=== PATIENT | male | born 1945 | race African-American/Black ===

== ENCOUNTER 2020-06-17 12:13 | Inpatient (IN) | payer MEDICARE, MEDICAID ==
[~2020-06-17] VITALS: Ht 177.8 cm; Wt 68.0 kg
[2020-06-17] MEDS ORDERED: ACETAMINOPHEN 325MG TABLET PO ONE (14:00)
[2020-06-17] MEDS ORDERED: IPRATROPIUM BROMIDE (0.02%) 0.5MG/2.5ML NEB HHN STA (14:01)
[2020-06-17] MEDS ORDERED: METHYLPREDNISOLONE SOD SUCC 125 MG/2 ML VIAL IV STA (14:01)
[2020-06-17] MEDS ORDERED: ALBUTEROL (0.083%) 2.5MG/3ML NEB HHN STA (14:01)
[2020-06-17] MEDS ORDERED: LEVOFLOXACIN 750MG PREMIX 150 ML IV ONE (14:15)
[2020-06-17 14:23] LABS: BASOPHILS % 0.2 % (0.0-2.0); HEMATOCRIT. 34.2 % (42.0-52.0); HEMOGLOBIN. 11.2 g/dL (14.0-18.0); LYMPHOCYTES % 8.9 % (20.0-50.0); MEAN CORPUSCULAR HEMOGLOBIN 29.5 pg (28.0-32.0); MEAN CORPUSCULAR VOLUME 89.8 fL (80.0-94.0); MONOCYTES % 7.3 % (2.0-8.0); NEUTROPHILS % 83.6 % (40.0-76.0); RED BLOOD CELL COUNT 3.81 mill/uL (4.7-6.1); RED CELL DISTRIBUTION WIDTH 13.9 % (11.6-14.6)
[2020-06-17 14:30] LABS: CHLORIDE 103 mEq/L (98-107)
[2020-06-17 14:47] LABS: MEAN PLATELET VOLUME 9.2 fl (7.4-10.4); PLATELET ESTIMATE NORMAL
[2020-06-17 14:48] LABS: PLATELET 227 x1000/uL (130-400)
[2020-06-17] MEDS ORDERED: DEXTROSE 50% WATER 50ML SYRINGE IV PRN (15:15)
[2020-06-17] MEDS ORDERED: NITROGLYCERIN 0.4MG TABLET SL SL PRN (15:15)
[2020-06-17] MEDS ORDERED: GUAIFENESIN 200MG/10ML SUGAR FREE UDC PO PRN (15:15)
[2020-06-17] MEDS ORDERED: MAGNESIUM/ALUMINUM HYDROXIDE/SIMETHICONE 30ML UDC PO PRN (15:15)
[2020-06-17] MEDS ORDERED: ALBUTEROL 6.7GM HFA INHALER ORI PRN (15:15)
[2020-06-17] MEDS ORDERED: ONDANSETRON HCL 4MG/2ML INJ IV PRN (15:15)
[2020-06-17] MEDS ORDERED: ACETAMINOPHEN 325MG TABLET PO PRN (15:15)
[2020-06-17] MEDS ORDERED: TRAMADOL 50MG TABLET PO PRN (15:26)
[2020-06-17] MEDS ORDERED: KETOROLAC 15MG/ML VIAL IV PRN (15:27)
[2020-06-17 17:52] LABS: FOLIC ACID (FOLATE) SERUM 12.3 ng/mL (>5.38)
[2020-06-17] MEDS: DILTIAZEM HCL 60MG TABLET PO SCH (18:00)
[2020-06-17] MEDS: ENOXAPARIN 30MG/0.3ML SYR SUBCUT SCH (18:00)
[2020-06-17] MEDS ORDERED: SODIUM CHLORIDE 0.9% 1000ML BAG (SEPSIS BOLUS) IV ONE (19:30)
[2020-06-17] MEDS: AZITHROMYCIN 500 MG in DEXT 5% WATER 250 ML IV SCH (20:00)
[2020-06-17] MEDS ORDERED: ZOLPIDEM TARTRATE 5MG TABLET PO PRN (20:00)
[2020-06-17] MEDS: BLOOD SUGAR DIAGNOSTIC STRIP TEST SCH (20:28)
[2020-06-17] MEDS: INSULIN LISPRO 100 UNITS/ML SUBCUT SCH (21:00)
[2020-06-17] MEDS: GUAIFENESIN/DM 600MG/30MG ER TAB 12HR PO SCH (21:26)
[2020-06-17] MEDS: FAMOTIDINE 20MG TABLET PO SCH (21:26)
[2020-06-17] MEDS: ASCORBIC ACID 500 MG TABLET PO SCH (21:26)
[2020-06-17] MEDS ORDERED: INSULIN GLARGINE UD 100 UNITS/ML SYR SUBCUT SCH (22:00)
[2020-06-17] MEDS ORDERED: IOHEXOL-350 100 ML BOTTLE ONE (23:30)
[2020-06-17 23:57] LABS: CREATINE KINASE MB FRACTION 7.3 ng/mL (0.5-3.6)
[2020-06-18 02:01] LABS: CLARITY URINE CLEAR (CLEAR); COLOR URINE YELLOW (YELLOW); KETONES URINE TRACE (NEGATIVE); LEUKOCYTE ESTERASE URINE NEGATIVE (NEGATIVE); NITRITE URINE NEGATIVE (NEGATIVE); OCCULT BLOOD URINE 1+ (NEGATIVE); PROTEIN URINE 3+ (NEGATIVE); SPECIFIC GRAVITY URINE 1.054 (1.005-1.030)
[2020-06-18 02:13] LABS: *AMPHETAMINES SCREEN URINE NEGATIVE (NEGATIVE); *BARBITURATES SCREEN URINE NEGATIVE (NEGATIVE); *BENZODIAZEPINES SCREEN URINE NEGATIVE (NEGATIVE)
[2020-06-18 02:14] LABS: *COCAINE SCREEN URINE NEGATIVE (NEGATIVE); CANNABINOID URINE SCREEN NEGATIVE (NEGATIVE); METHADONE URINE SCREEN NEGATIVE (NEGATIVE); OPIATES URINE SCREEN NEGATIVE (NEGATIVE); PHENCYCLIDINE URINE SCREEN NEGATIVE (NEGATIVE)
[2020-06-18 06:05] LABS: HEMATOCRIT. 29.3 % (42.0-52.0); MEAN CORPUSCULAR HEMOGLOBIN 30.3 pg (28.0-32.0); MEAN PLATELET VOLUME 9.1 fl (7.4-10.4); PLATELET 218 x1000/uL (130-400); RED BLOOD CELL COUNT 3.29 mill/uL (4.7-6.1); RED CELL DISTRIBUTION WIDTH 13.9 % (11.6-14.6)
[2020-06-18 06:11] LABS: CHLORIDE 103 mEq/L (98-107)
[2020-06-18 06:18] LABS: PHOSPHORUS 2.4 mg/dL (2.5-4.9)
[2020-06-18 06:21] LABS: CREATINE KINASE 627 IU/L (39-308)
[2020-06-18 06:24] LABS: CREATINE KINASE MB FRACTION 11.3 ng/mL (0.5-3.6)
[2020-06-18 07:31] LABS: ATYPICAL LYMPHOCYTES 1; PLATELET ESTIMATE NORMAL
[2020-06-18] MEDS: ENOXAPARIN 30MG/0.3ML SYR SUBCUT SCH ×2 (08:09→18:28)
[2020-06-18] MEDS: DILTIAZEM HCL 60MG TABLET PO SCH ×4 (08:27→18:28)
[2020-06-18] MEDS: BLOOD SUGAR DIAGNOSTIC STRIP TEST SCH ×4 (09:02→22:01)
[2020-06-18] MEDS: GUAIFENESIN/DM 600MG/30MG ER TAB 12HR PO SCH ×2 (09:42→21:00)
[2020-06-18] MEDS: INSULIN LISPRO 100 UNITS/ML SUBCUT SCH ×4 (09:42→21:00)
[2020-06-18] MEDS: ASCORBIC ACID 500 MG TABLET PO SCH ×2 (09:43→21:00)
[2020-06-18] MEDS: DEXAMETHASONE 10 MG/ML VIAL IV SCH (11:01)
[2020-06-18] MEDS: ZINC SULFATE 220 MG ( 50 ) CAPSULE PO SCH (11:02)
[2020-06-18] MEDS: FAMOTIDINE 20MG TABLET PO SCH ×2 (11:02→21:00)
[2020-06-18] MEDS: ASPIRIN 325MG EC TABLET PO SCH (11:02)
[2020-06-18] MEDS: INSULIN GLARGINE UD 100 UNITS/ML SYR SUBCUT SCH (22:00)
[2020-06-18 23:01] LABS: BG BASE EXCESS -2.9 mmol/L (-2.0-2.0); BG CARBOXYHEMOGLOBIN 0.3 % (0.5-1.5); BG DEOXYHEMOGLOBIN 7.5 % (0.0-5.0); BG FRACTION INSPIRED OXYGEN 100; BG HCO3 ACT 19.3 mmol/L (22.0-26.0); BG METHEMOGLOBIN 0.2 % (0.0-1.5); BG OXYGEN SATURATION 92.5 % (92.0-98.5); BG PCO2 26.5 mmHg (35.0-45.0); BG PH 7.481 (7.350-7.450); BG PO2 65.4 mmHg (75.0-100.0); BG SAMPLE SITE RIGHT RADIAL; BG VENT MODE MASK - NRB
[2020-06-18] MEDS: CEFTRIAXONE 1 G PREMIX 50 ML IV SCH (23:30)
[2020-06-19] MEDS: AZITHROMYCIN 500 MG in DEXT 5% WATER 250 ML IV SCH ×2 (00:32→20:00)
[2020-06-19] MEDS: INSULIN GLARGINE UD 100 UNITS/ML SYR SUBCUT SCH (01:09)
[2020-06-19] MEDS: DILTIAZEM HCL 60MG TABLET PO SCH ×4 (06:00→18:16)
[2020-06-19] MEDS: ENOXAPARIN 30MG/0.3ML SYR SUBCUT SCH (06:58)
[2020-06-19] MEDS: BLOOD SUGAR DIAGNOSTIC STRIP TEST SCH ×4 (08:14→21:00)
[2020-06-19] MEDS: INSULIN LISPRO 100 UNITS/ML SUBCUT SCH ×4 (08:20→18:17)
[2020-06-19] MEDS: FAMOTIDINE 20MG TABLET PO SCH (09:23)
[2020-06-19] MEDS: GUAIFENESIN/DM 600MG/30MG ER TAB 12HR PO SCH (09:23)
[2020-06-19] MEDS: DEXAMETHASONE 10 MG/ML VIAL IV SCH (09:23)
[2020-06-19] MEDS: ZINC SULFATE 220 MG ( 50 ) CAPSULE PO SCH (09:23)
[2020-06-19] MEDS: ASPIRIN 325MG EC TABLET PO SCH (09:23)
[2020-06-19] MEDS: ASCORBIC ACID 500 MG TABLET PO SCH (09:23)
[2020-06-19 11:58] VITALS: BP 153/66
[2020-06-19] MEDS ORDERED: METF-415 MT (12:39)
[2020-06-19] MEDS ORDERED: ASPI-1497 MT (12:39)
[2020-06-19] MEDS ORDERED: VITA50005 PO (12:39)
[2020-06-19] MEDS ORDERED: AMLO10TA80 MT (12:39)
[2020-06-19] MEDS ORDERED: BICA50TA48 MT (12:39)
[2020-06-19] MEDS ORDERED: ASCO-339 PO (12:39)
[2020-06-19] MEDS ORDERED: DIPH50CA38 PO (12:39)
[2020-06-19] MEDS ORDERED: CLOP-31 MT (12:39)
[2020-06-19] MEDS ORDERED: ROSU20TA2 MT (12:39)
[2020-06-19 16:00] VITALS: BP 124/66
[2020-06-19 16:26] LABS: BG BASE EXCESS -3.4 mmol/L (-2.0-2.0); BG CARBOXYHEMOGLOBIN 0.1 % (0.5-1.5); BG DEOXYHEMOGLOBIN 13.1 % (0.0-5.0); BG FRACTION INSPIRED OXYGEN 36; BG HCO3 ACT 19.4 mmol/L (22.0-26.0); BG METHEMOGLOBIN 0.1 % (0.0-1.5); BG OXYGEN SATURATION 86.9 % (92.0-98.5); BG OXYHEMOGLOBIN 86.7 % (94.0-97.0); BG PCO2 27.7 mmHg (35.0-45.0); BG PH 7.463 (7.350-7.450); BG PO2 53.2 mmHg (75.0-100.0); BG SAMPLE SITE RIGHT BRACHIAL; BG TOTAL HEMOGLOBIN 10.7 g/dL (12.0-18.0); BG VENT MODE NASAL CANNULA
[2020-06-19] MEDS: CEFTRIAXONE 1 G PREMIX 50 ML IV SCH (21:00)
[2020-06-20] MEDS: INSULIN GLARGINE UD 100 UNITS/ML SYR SUBCUT SCH ×2 (00:41→22:53)
[2020-06-20] MEDS: ASCORBIC ACID 500 MG TABLET PO SCH ×3 (00:45→22:51)
[2020-06-20] MEDS: FAMOTIDINE 20MG TABLET PO SCH ×3 (00:45→22:51)
[2020-06-20] MEDS: GUAIFENESIN/DM 600MG/30MG ER TAB 12HR PO SCH ×3 (00:45→22:51)
[2020-06-20] MEDS: DILTIAZEM HCL 60MG TABLET PO SCH ×3 (06:00→17:01)
[2020-06-20] MEDS: BLOOD SUGAR DIAGNOSTIC STRIP TEST SCH ×4 (06:40→20:55)
[2020-06-20 08:00] VITALS: BP 151/55
[2020-06-20] MEDS: DEXAMETHASONE 10 MG/ML VIAL IV SCH (09:57)
[2020-06-20] MEDS: ENOXAPARIN 40MG/0.4ML SYR SUBCUT SCH (09:57)
[2020-06-20] MEDS: INSULIN LISPRO 100 UNITS/ML SUBCUT SCH ×4 (09:57→21:00)
[2020-06-20] MEDS: ASPIRIN 325MG EC TABLET PO SCH (09:58)
[2020-06-20] MEDS: ZINC SULFATE 220 MG ( 50 ) CAPSULE PO SCH (09:58)
[2020-06-20] MEDS: ALBUTEROL 6.7GM HFA INHALER ORI SCH ×2 (09:59→22:50)
[2020-06-20 12:00] VITALS: BP 143/69
[2020-06-20 16:00] VITALS: BP 122/39
[2020-06-20 20:00] VITALS: BP 128/52
[2020-06-20] MEDS: AZITHROMYCIN 500MG in DEXTROSE 5% WATER 250ML IV SCH (22:50)
[2020-06-20] MEDS: CEFTRIAXONE 1,000 MG in DEXTROSE 5% WATER 50 ML IV SCH (22:51)
[2020-06-21] VITALS: BP 132/54
[2020-06-21 04:00] VITALS: BP 144/68
[2020-06-21] MEDS: BLOOD SUGAR DIAGNOSTIC STRIP TEST SCH ×4 (06:40→21:00)
[2020-06-21 08:00] VITALS: BP 127/53
[2020-06-21] MEDS: ASCORBIC ACID 500 MG TABLET PO SCH ×2 (09:00→22:14)
[2020-06-21] MEDS: GUAIFENESIN/DM 600MG/30MG ER TAB 12HR PO SCH ×2 (10:08→22:14)
[2020-06-21] MEDS: DEXAMETHASONE 10 MG/ML VIAL IV SCH (10:08)
[2020-06-21] MEDS: INSULIN LISPRO 100 UNITS/ML SUBCUT SCH ×4 (10:09→22:14)
[2020-06-21] MEDS: ZINC SULFATE 220 MG ( 50 ) CAPSULE PO SCH (10:14)
[2020-06-21] MEDS: ASPIRIN 325MG EC TABLET PO SCH (10:14)
[2020-06-21] MEDS: ENOXAPARIN 40MG/0.4ML SYR SUBCUT SCH (10:15)
[2020-06-21] MEDS: FAMOTIDINE 20MG TABLET PO SCH ×2 (10:15→22:14)
[2020-06-21] MEDS: ALBUTEROL 6.7GM HFA INHALER ORI SCH ×2 (10:16→16:25)
[2020-06-21] MEDS: DILTIAZEM HCL 60MG TABLET PO SCH ×2 (12:17→17:46)
[2020-06-21 16:00] VITALS: BP 144/58
[2020-06-21] MEDS: INSULIN GLARGINE UD 100 UNITS/ML SYR SUBCUT SCH (22:13)
[2020-06-21] MEDS: AZITHROMYCIN 500MG in DEXTROSE 5% WATER 250ML IV SCH (22:13)
[2020-06-21] MEDS: CEFTRIAXONE 1,000 MG in DEXTROSE 5% WATER 50 ML IV SCH (22:13)
[2020-06-21 23:17] VITALS: BP 98/65
[2020-06-22] MEDS: ALBUTEROL 6.7GM HFA INHALER ORI SCH ×5 (01:02→22:16)
[2020-06-22] MEDS: DILTIAZEM HCL 60MG TABLET PO SCH ×4 (01:02→17:01)
[2020-06-22] MEDS: BLOOD SUGAR DIAGNOSTIC STRIP TEST SCH ×4 (06:40→21:00)
[2020-06-22 08:00] VITALS: BP 176/65
[2020-06-22] MEDS: ENOXAPARIN 40MG/0.4ML SYR SUBCUT SCH (09:54)
[2020-06-22] MEDS: GUAIFENESIN/DM 600MG/30MG ER TAB 12HR PO SCH ×2 (09:54→22:14)
[2020-06-22] MEDS: DEXAMETHASONE 10 MG/ML VIAL IV SCH (09:54)
[2020-06-22] MEDS: ASPIRIN 325MG EC TABLET PO SCH (09:55)
[2020-06-22] MEDS: FAMOTIDINE 20MG TABLET PO SCH ×2 (09:55→22:14)
[2020-06-22] MEDS: ASCORBIC ACID 500 MG TABLET PO SCH ×2 (09:55→22:14)
[2020-06-22] MEDS: CLONIDINE 0.1MG TABLET PO PRN (09:55)
[2020-06-22] MEDS: ZINC SULFATE 220 MG ( 50 ) CAPSULE PO SCH (09:55)
[2020-06-22] MEDS: INSULIN LISPRO 100 UNITS/ML SUBCUT SCH ×4 (09:56→21:00)
[2020-06-22 16:00] VITALS: BP 133/59
[2020-06-22 20:00] VITALS: BP 153/65
[2020-06-22] MEDS: AZITHROMYCIN 500MG in DEXTROSE 5% WATER 250ML IV SCH (22:03)
[2020-06-22] MEDS: CEFTRIAXONE 1,000 MG in DEXTROSE 5% WATER 50 ML IV SCH (22:03)
[2020-06-22] MEDS: INSULIN GLARGINE UD 100 UNITS/ML SYR SUBCUT SCH (22:15)
[2020-06-23] VITALS: BP 142/71
[2020-06-23] MEDS: DILTIAZEM HCL 60MG TABLET PO SCH ×4 (00:37→17:14)
[2020-06-23] MEDS: ALBUTEROL 6.7GM HFA INHALER ORI SCH ×4 (02:35→20:39)
[2020-06-23 04:00] VITALS: BP 117/45
[2020-06-23] MEDS: BLOOD SUGAR DIAGNOSTIC STRIP TEST SCH ×4 (06:41→20:37)
[2020-06-23] MEDS: INSULIN LISPRO 100 UNITS/ML SUBCUT SCH ×4 (07:10→20:37)
[2020-06-23 08:00] VITALS: BP 138/58
[2020-06-23] MEDS: ENOXAPARIN 40MG/0.4ML SYR SUBCUT SCH (08:39)
[2020-06-23] MEDS: DEXAMETHASONE 10 MG/ML VIAL IV SCH (08:40)
[2020-06-23] MEDS: ZINC SULFATE 220 MG ( 50 ) CAPSULE PO SCH (08:40)
[2020-06-23] MEDS: FAMOTIDINE 20MG TABLET PO SCH ×2 (08:40→20:36)
[2020-06-23] MEDS: GUAIFENESIN/DM 600MG/30MG ER TAB 12HR PO SCH ×2 (08:40→20:36)
[2020-06-23] MEDS: ASCORBIC ACID 500 MG TABLET PO SCH ×2 (08:40→20:37)
[2020-06-23] MEDS: ASPIRIN 325MG EC TABLET PO SCH (08:40)
[2020-06-23 12:00] VITALS: BP 157/67
[2020-06-23 16:00] VITALS: BP 144/78
[2020-06-23 20:00] VITALS: BP 108/68
[2020-06-23] MEDS: CEFTRIAXONE 1,000 MG in DEXTROSE 5% WATER 50 ML IV SCH (20:36)
[2020-06-23] MEDS: INSULIN GLARGINE UD 100 UNITS/ML SYR SUBCUT SCH (21:55)
[2020-06-24] VITALS: BP 130/58
[2020-06-24] MEDS: ALBUTEROL 6.7GM HFA INHALER ORI SCH ×4 (03:31→21:43)
[2020-06-24 04:00] VITALS: BP 106/68
[2020-06-24] MEDS: DILTIAZEM HCL 60MG TABLET PO SCH ×5 (06:00→23:35)
[2020-06-24] MEDS: BLOOD SUGAR DIAGNOSTIC STRIP TEST SCH ×4 (06:40→20:48)
[2020-06-24 08:00] VITALS: BP 110/59
[2020-06-24] MEDS: INSULIN LISPRO 100 UNITS/ML SUBCUT SCH ×4 (08:01→21:36)
[2020-06-24] MEDS: ZINC SULFATE 220 MG ( 50 ) CAPSULE PO SCH (08:31)
[2020-06-24] MEDS: DEXAMETHASONE 10 MG/ML VIAL IV SCH (08:31)
[2020-06-24] MEDS: ASCORBIC ACID 500 MG TABLET PO SCH ×2 (08:31→21:36)
[2020-06-24] MEDS: ASPIRIN 325MG EC TABLET PO SCH (08:31)
[2020-06-24] MEDS: GUAIFENESIN/DM 600MG/30MG ER TAB 12HR PO SCH ×2 (08:33→21:36)
[2020-06-24] MEDS: FAMOTIDINE 20MG TABLET PO SCH ×2 (09:00→21:35)
[2020-06-24] MEDS: ENOXAPARIN 40MG/0.4ML SYR SUBCUT SCH (09:23)
[2020-06-24 12:00] VITALS: BP 145/55
[2020-06-24 15:58] VITALS: BP 141/56
[2020-06-24 20:00] VITALS: BP 138/62
[2020-06-24] MEDS: INSULIN GLARGINE UD 100 UNITS/ML SYR SUBCUT SCH (21:37)
[2020-06-25] VITALS (7 sets, daily range): BP systolic 130–165; BP diastolic 50–87
[2020-06-25] MEDS: ALBUTEROL 6.7GM HFA INHALER ORI SCH ×4 (02:27→21:00)
[2020-06-25] MEDS: DILTIAZEM HCL 60MG TABLET PO SCH ×3 (05:53→17:11)
[2020-06-25] MEDS: BLOOD SUGAR DIAGNOSTIC STRIP TEST SCH ×4 (05:54→21:20)
[2020-06-25] MEDS: INSULIN LISPRO 100 UNITS/ML SUBCUT SCH ×4 (05:55→22:05)
[2020-06-25] MEDS: ASPIRIN 325MG EC TABLET PO SCH (09:12)
[2020-06-25] MEDS: DEXAMETHASONE 10 MG/ML VIAL IV SCH (09:12)
[2020-06-25] MEDS: GUAIFENESIN/DM 600MG/30MG ER TAB 12HR PO SCH ×2 (09:12→22:04)
[2020-06-25] MEDS: FAMOTIDINE 20MG TABLET PO SCH ×2 (09:12→21:00)
[2020-06-25] MEDS: ZINC SULFATE 220 MG ( 50 ) CAPSULE PO SCH (09:12)
[2020-06-25] MEDS: ASCORBIC ACID 500 MG TABLET PO SCH ×2 (11:19→22:03)
[2020-06-25] MEDS: ENOXAPARIN 40MG/0.4ML SYR SUBCUT SCH (11:20)
[2020-06-25] MEDS: DOCUSATE SODIUM 100MG CAPSULE PO PRN (16:59)
[2020-06-25] MEDS: INSULIN GLARGINE UD 100 UNITS/ML SYR SUBCUT SCH (22:05)
[2020-06-26] VITALS: BP 140/50
[2020-06-26 04:00] VITALS: BP 108/60
[2020-06-26] MEDS: DILTIAZEM HCL 60MG TABLET PO SCH ×5 (06:00→23:20)
[2020-06-26] MEDS: ALBUTEROL 6.7GM HFA INHALER ORI SCH ×4 (06:10→20:29)
[2020-06-26] MEDS: BLOOD SUGAR DIAGNOSTIC STRIP TEST SCH ×4 (06:40→20:29)
[2020-06-26 07:29] LABS: MEAN CORPUSCULAR HEMOGLOBIN 29.5 pg (28.0-32.0); MEAN CORPUSCULAR VOLUME 91.6 fL (80.0-94.0); PLATELET 400 x1000/uL (130-400); RED BLOOD CELL COUNT 3.38 mill/uL (4.7-6.1); RED CELL DISTRIBUTION WIDTH 14.8 % (11.6-14.6)
[2020-06-26 07:50] LABS: CHLORIDE 107 mEq/L (98-107)
[2020-06-26 08:00] VITALS: BP 137/61
[2020-06-26] MEDS: GUAIFENESIN/DM 600MG/30MG ER TAB 12HR PO SCH ×2 (09:55→20:29)
[2020-06-26] MEDS: ENOXAPARIN 40MG/0.4ML SYR SUBCUT SCH (09:55)
[2020-06-26] MEDS: FAMOTIDINE 20MG TABLET PO SCH ×2 (09:55→20:29)
[2020-06-26] MEDS: ASPIRIN 325MG EC TABLET PO SCH (09:55)
[2020-06-26] MEDS: INSULIN LISPRO 100 UNITS/ML SUBCUT SCH ×4 (09:56→20:42)
[2020-06-26] MEDS: ASCORBIC ACID 500 MG TABLET PO SCH ×2 (09:56→20:29)
[2020-06-26] MEDS: DEXAMETHASONE 10 MG/ML VIAL IV SCH (09:56)
[2020-06-26] MEDS: ZINC SULFATE 220 MG ( 50 ) CAPSULE PO SCH (09:56)
[2020-06-26 12:00] VITALS: BP 135/62
[2020-06-26] MEDS: LACTULOSE 20G/30ML UDC PO SCH ×2 (12:33→20:29)
[2020-06-26 16:00] VITALS: BP 142/55
[2020-06-26] MEDS: ACETAMINOPHEN 325MG TABLET PO PRN (16:36)
[2020-06-26 20:00] VITALS: BP 151/71
[2020-06-26] MEDS: INSULIN GLARGINE UD 100 UNITS/ML SYR SUBCUT SCH (22:39)
[2020-06-27 00:01] VITALS: BP 141/70
[2020-06-27] MEDS: ALBUTEROL 6.7GM HFA INHALER ORI SCH ×4 (03:08→20:37)
[2020-06-27 04:00] VITALS: BP 106/58
[2020-06-27] MEDS: LACTULOSE 20G/30ML UDC PO SCH ×3 (05:35→20:37)
[2020-06-27] MEDS: DILTIAZEM HCL 60MG TABLET PO SCH ×4 (05:35→23:19)
[2020-06-27] MEDS: BLOOD SUGAR DIAGNOSTIC STRIP TEST SCH ×4 (05:35→20:38)
[2020-06-27] MEDS: ACETAMINOPHEN 325MG TABLET PO PRN (06:01)
[2020-06-27] MEDS: INSULIN LISPRO 100 UNITS/ML SUBCUT SCH ×4 (06:03→20:38)
[2020-06-27 08:00] VITALS: BP 129/77
[2020-06-27] MEDS: ENOXAPARIN 40MG/0.4ML SYR SUBCUT SCH (09:28)
[2020-06-27] MEDS: ASPIRIN 325MG EC TABLET PO SCH (09:29)
[2020-06-27] MEDS: DEXAMETHASONE 10 MG/ML VIAL IV SCH (09:29)
[2020-06-27] MEDS: ZINC SULFATE 220 MG ( 50 ) CAPSULE PO SCH (09:29)
[2020-06-27] MEDS: GUAIFENESIN/DM 600MG/30MG ER TAB 12HR PO SCH ×2 (09:29→20:37)
[2020-06-27] MEDS: FAMOTIDINE 20MG TABLET PO SCH ×2 (11:44→20:37)
[2020-06-27] MEDS: ASCORBIC ACID 500 MG TABLET PO SCH ×2 (11:44→20:37)
[2020-06-27 12:00] VITALS: BP 136/57
[2020-06-27 16:00] VITALS: BP 149/41
[2020-06-27 20:00] VITALS: BP 142/66
[2020-06-27] MEDS: INSULIN GLARGINE UD 100 UNITS/ML SYR SUBCUT SCH (22:31)
[2020-06-28] VITALS (7 sets, daily range): BP systolic 113–169; BP diastolic 47–71
[2020-06-28] MEDS: ALBUTEROL 6.7GM HFA INHALER ORI SCH ×4 (03:03→21:56)
[2020-06-28] MEDS: LACTULOSE 20G/30ML UDC PO SCH ×3 (05:19→21:55)
[2020-06-28] MEDS: DILTIAZEM HCL 60MG TABLET PO SCH ×3 (05:19→17:39)
[2020-06-28] MEDS: INSULIN LISPRO 100 UNITS/ML SUBCUT SCH ×4 (05:38→21:00)
[2020-06-28] MEDS: BLOOD SUGAR DIAGNOSTIC STRIP TEST SCH ×4 (05:38→21:56)
[2020-06-28] MEDS: ASPIRIN 325MG EC TABLET PO SCH (09:56)
[2020-06-28] MEDS: GUAIFENESIN/DM 600MG/30MG ER TAB 12HR PO SCH ×2 (09:56→21:55)
[2020-06-28] MEDS: ENOXAPARIN 40MG/0.4ML SYR SUBCUT SCH (09:56)
[2020-06-28] MEDS: ZINC SULFATE 220 MG ( 50 ) CAPSULE PO SCH (09:56)
[2020-06-28] MEDS: ASCORBIC ACID 500 MG TABLET PO SCH ×2 (09:56→21:55)
[2020-06-28] MEDS: DOCUSATE SODIUM 100MG CAPSULE PO PRN (09:56)
[2020-06-28] MEDS: FAMOTIDINE 20MG TABLET PO SCH ×2 (09:56→21:55)
[2020-06-28] MEDS: ACETAMINOPHEN 325MG TABLET PO PRN (09:57)
[2020-06-28] MEDS: CLONIDINE 0.1MG TABLET PO PRN (17:39)
[2020-06-28] MEDS: INSULIN GLARGINE UD 100 UNITS/ML SYR SUBCUT SCH (23:53)
[2020-06-29] VITALS: BP 148/67
[2020-06-29] MEDS: DILTIAZEM HCL 60MG TABLET PO SCH ×3 (01:44→12:54)
[2020-06-29] MEDS: ALBUTEROL 6.7GM HFA INHALER ORI SCH (03:21)
[2020-06-29 04:00] VITALS: BP 127/46
[2020-06-29] MEDS: BLOOD SUGAR DIAGNOSTIC STRIP TEST SCH ×2 (06:10→11:40)
[2020-06-29] MEDS: LACTULOSE 20G/30ML UDC PO SCH (06:31)
[2020-06-29 08:00] VITALS: BP 121/47
[2020-06-29] MEDS: FAMOTIDINE 20MG TABLET PO SCH (08:59)
[2020-06-29] MEDS: ASCORBIC ACID 500 MG TABLET PO SCH (08:59)
[2020-06-29] MEDS: GUAIFENESIN/DM 600MG/30MG ER TAB 12HR PO SCH (08:59)
[2020-06-29] MEDS: ASPIRIN 325MG EC TABLET PO SCH (08:59)
[2020-06-29] MEDS: ZINC SULFATE 220 MG ( 50 ) CAPSULE PO SCH (08:59)
[2020-06-29] MEDS: ENOXAPARIN 40MG/0.4ML SYR SUBCUT SCH (09:00)
[2020-06-29 11:41] VITALS: BP 138/68
[2020-06-29] MEDS: INSULIN LISPRO 100 UNITS/ML SUBCUT SCH (12:58)
== END 2020-06-29 17:20 | disposition home or self-care (01) | DRG 871 ==
LOC: ER 12:13 → SUPCPDRO 15:07 → ENRESERV 06-19 09:34 → 7EST 06-19 10:55
PROVIDERS: ADMIT Internal Medicine; ATTEND Internal Medicine
DX: A41.89 Other specified sepsis (principal); U07.1 COVID-19; J96.01 Acute respiratory failure with hypoxia; J12.82 Pneumonia due to coronavirus disease 2019; E44.0 Moderate protein-calorie malnutrition; E87.1 Hypo-osmolality and hyponatremia; R65.20 Severe sepsis without septic shock; E11.9 Type 2 diabetes mellitus without complications; D64.9 Anemia, unspecified; I10 Essential (primary) hypertension; N40.0 Benign prostatic hyperplasia without lower urinary tract symptoms; Z87.891 Personal history of nicotine dependence; Z79.82 Long term (current) use of aspirin; Z79.899 Other long term (current) drug therapy; Z68.21 Body mass index [BMI] 21.0-21.9, adult; Z79.1 Long term (current) use of non-steroidal anti-inflammatories (NSAID)
CPT/HCPCS: 36415; 36600; 71045; 71275; 80048; 80053; 80061; 82375; 82550; 82553; 82607; 82728; 82746; 82805; 82962; 83036; 83540; 83550; 83605; 83615; 83880; 84145; 84484; 85025; 85027; 85379; 86140; 87635; 93005; 93970; 99291; C1893; J0456; J0696; J1100; J1650; J1815; J1956; J2930; J7030; J7040; J7060; Q9967

== ENCOUNTER → 2021-09-06 | Outpatient (CLI) | payer MEDICARE, MEDICAID ==
[~2021-09-06] MED LIST: AMLO10TA80 MT; ASCO-339 PO; ASPI-1497 MT; BICA50TA48 MT; CLOP-31 MT; DIPH50CA38 PO; METF-415 MT; ROSU20TA2 MT; VITA50005 PO
== END | disposition home or self-care (01) ==
LOC: LAB 13:52
PROVIDERS: ATTEND Specialist
DX: R73.9 Hyperglycemia, unspecified (principal)
CPT/HCPCS: 83036